=== PATIENT | female | born 1945 | race Caucasian/White ===

== ENCOUNTER → 2016-11-14 | Outpatient (CLI) | payer OTHER ==
--- NOTE | 2016-11-14 11:29 | MR ---
MRI Upper Extremity, Right Shoulder History: Right shoulder pain. Evaluate for rotator cuff tear. ICD 10 code M75.121. Technique: MRI was performed of the right shoulder using a 1.5 [employer] MRI system. Oblique coronal, obl ique sagittal, and axial images were obtained with standard imaging sequences. Findings Acromioclavicular region: Moderate degenerative change is seen at the acromioclavicular joint. Anteri or curve to the acromion. Subacromial/subdeltoid fluid collection. Rotator cuff: There is abnormal signal intensity and attenuation in the distal supraspinatus tendon. There is bursal surface and undersurface fraying and attenuation. There appears to be a 3 mm full thi ckness tear, 7 mm from the distal insertion. Subcortical cyst is seen in the anterior greater tuberos ity, measuring 10 mm. There is edema along the central tendon and muscle of the supraspinatus. There is moderate abnormal signal intensity in the distal anterior fibers of the infraspinatus tendon with minimal attenuation. Teres minor is unremarkable. There is abnormal signal intensity and attenuation of the distal subscapularis tendon at the distal 1 cm. Biceps tendon: The long head of the biceps tendon is seen within the bicipital groove. There is abnor mal signal intensity in the intraarticular portion of the long head of the biceps tendon. Glenohumeral joint: Fraying is seen in the posterosuperior labrum with partial tear near the free edg e in the 11-12 o'clock position. No evidence for an articular cartilage defect of the glenohumeral gee int. No significant glenohumeral joint effusion. General: No evidence for axillary lymphadenopathy. Impression: 1. Severe tendinopathy and partial tear in the distal supraspinatus tendon with a small full thicknes s tear. This appears acute with edema along the central tendon and muscle of the supraspinatus. Moder ate tendinopathy with minimal partial tear distal infraspinatus tendon. Subacromial/subdeltoid bursit is. 2. Mild tendinopathy and partial tear distal subscapularis tendon. 3. Moderate tendinopathy intraarticular long of the biceps tendon. 4. Fraying and partial tear of the posterosuperior labrum. 5. Moderate degenerative change acromioclavicular joint. Anterior curve to the acromion.
== END ==
LOC: FIMAGING 08:31
PROVIDERS: ATTEND Physician Assistant
DX: M75.121 Complete rotator cuff tear or rupture of right shoulder, not specified as traumatic (principal); M75.31 Calcific tendinitis of right shoulder; M75.21 Bicipital tendinitis, right shoulder; M19.011 Primary osteoarthritis, right shoulder

== ENCOUNTER 2017-02-02 09:55 | Emergency (ER) | payer OTHER ==
[2017-02-02 10:10] VITALS: BP 156/87; PULSE 88; RESP 18; TEMP 98; O2SAT 97
--- NOTE | 2017-02-02 11:51 | UCPHY ---
H & P Time Seen by Provider: 02/02/17 09:59 Patient Type: Established HPI/ROS: CHIEF COMPLAINT: Constipation and diarrhea History by patient HISTORY OF PRESENT ILLNESS: 71-year-old woman who is 3 weeks status post left knee replacement presents complaining of intermittent constipation alternating with diarrhea for the past 3-4 days as well as some abdominal cramping and nausea but no vomiting. Patient has a history of irritable bowel syndrome which she says is generally associated with diarrhea and that she was having that even prior to her surgery. Patient has been taking both Dilaudid and OxyContin for her knee pain after the operation however in the past week she has significantly decreased her dosages of these medications. She is able to eat and drink but she feels like things go right through her or alternately that she is constipated. She denies any fever or chills. She says her knee has been doing very well which is why she is tapering off the pain medication. Patient also says she gets epigastric discomfort, heartburn for pain and brackish taste in her mouth, particularly when she lies flat and at night. The symptoms have been going on since at least when she had the surgery and the hospital if not prior to that. Patient states she was given Mylanta in the hospital for these symptoms which helped somewhat she has been taking this at home too with some relief. REVIEW OF SYSTEMS: As in HPI, and all other systems reviewed and are negative Smoking Status: Never smoked Physical Exam: General Appearance: Alert, nontoxic-appearing. Eyes: Pupils equal and round no pallor or injection. ENT, Mouth: Mucous membranes moist. Respiratory: Normal, effort, There are no retractions, lungs are clear to auscultation. Cardiovascular: Regular rate and rhythm. Gastrointestinal: Abdomen is soft and nontender, no masses, bowel sounds normal. Neurological: Awake, alert and oriented x 3, no pronator drift, normal gait, no pronator drift Skin: Warm and dry, no rashes. Musculoskeletal: Neck is supple nontender. Extremities are symmetrical, full range of motion. Psychiatric: Patient has normal affect, there is no agitation. Constitutional: Initial Vital Signs Temperature (C) 36.6 C 02/02/17 10:07 Heart Rate 88 02/02/17 10:07 Respiratory Rate 18 02/02/17 10:07 Blood Pressure 156/87 H 02/02/17 10:07 O2 Sat (%) 97 02/02/17 10:07 O2 Delivery Mode Room Air Allergies/Adverse Reactions: bethanechol chloride [From Urecholine] Allergy (Severe, Verified 07/15/16 16:38) FLUSHED, PALPATATIONS, SOB codeine [Codeine] Allergy (Intermediate, Verified 07/15/16 16:38) NAUSEA, VOMITING Home Medications: Medication Instructions Recorded Cholecalciferol (Vitamin D3) 5,000 unit PO DAILY 05/13/12 [Vitamin D3] Ezetimibe/Simvastatin [Vytorin 1 each PO DAILY 05/13/12 10-20 mg Tablet] Levothyroxine [Synthroid 137 mcg 137 mcg PO DAILY06 05/13/12 (RX)] Multivitamins [Multivitamin (OTC)] 1 each PO DAILY 05/13/12 Sertraline HCl [Zoloft 100mg (RX)] 100 mg PO DAILY 05/13/12 Triamterene/Hctz 37.5/25 2 tab PO DAILY 05/13/12 [Maxzide-25 (RX)] Vitamin B Complex [Vitamin B 1 each PO DAILY 05/13/12 Complex (OTC)] Maxzide-25 (*) 07/15/16 New Ra Med 07/15/16 Omeprazole [Prilosec 20 mg] 20 mg PO DAILY #0 capsule. 02/02/17 Ondansetron Odt [Zofran Odt 4 mg 4 mg PO Q4 #12 tab 02/02/17 (*)] Medical Decision Making ED Course/Re-evaluation: 71-year-old woman status post left knee replacement and history of irritable bowel syndrome presents with both constipation and diarrhea. Patient has a longstanding history of diarrhea earlier related to her irritable bowel syndrome. I suspect the constipation is related to the opioid she has been taking for pain and the fact that she is sick significantly decreased her dose after 3 weeks of regular OxyContin and Dilaudid may be giving her some mild withdrawal symptoms. There is no evidence of any significant systemic toxicity , dehydration or acute abdomen. She is taking oral food and fluids without difficulty. I recommended she get completely off the opioids and we can treat her GI symptoms symptomatically with Zofran and Prilosec for her reflux. Patient is agreeable to this plan. She follow up with her GI doctor. She will get back on her probiotics for her IBS. Departure - Departure Disposition: Home, Routine, Self-Care Clinical Impression: Constipation due to opioid therapy Diarrhea Qualifiers: Diarrhea type: unspecified type Qualified Code(s): R19.7 - Diarrhea, unspecified Clinical Impression: (Ruled Out): Irritable bowel syndrome with both constipation and diarrhea Condition: Good Instructions: Nutrition Tips for Relief of Diarrhea (ED) Additional Instructions: You were seen by Dr. Tasha Doshi today. Return for any worsening or new concerns. Begin taking your probiotics again. You may try Imodium for the diarrhea. You may take Zofran as needed for nausea the and omeprazole for reflux symptoms. Please drink plenty of fluids. Your symptoms may be related to going off the opioid pain medicines. Try alternative treatments for pain. Referrals: MIKE NIETO [Primary Care Provider] - As per Instructions Prescriptions: Omeprazole [Prilosec 20 mg] 20 mg PO DAILY #0 capsule. Ondansetron Odt [Zofran Odt 4 mg (*)] 4 mg PO Q4 #12 tab - PQRS PQRS Measurement: 134: Depression screening and followup, PRIME MD-PHQ2 (12 years and older) Over the last 2 weeks, how often have you been bothered by any of the following problems? 1. Feeling down, depressed, or hopeless? 2. Little interest or pleasure in doing things? Patient answered no to both 1 and 2 . 130: Documentation of medications. Reviewed all patient medications, doses, route and frequency. . 226: Do you smoke? No. 47: 65 and older: Advanced care planning. Patient designates surrogate decision maker as spouse . 51: 18 years old and older with diagnosis of COPD, spirometry performance. Patient has no history of COPD 52: 18 years old and older with COPD and symptoms of COPD or FEV1<60% predicted prescribed a B Agonist
== END 2017-02-02 11:59 | disposition home or self-care (01) ==
LOC: CED 09:55
DX: K59.09 Other constipation (principal); R19.7 Diarrhea, unspecified; Z96.642 Presence of left artificial hip joint; K58.0 Irritable bowel syndrome with diarrhea
CPT/HCPCS: 99214-PO; G0463-PO

== ENCOUNTER → 2017-04-07 | Outpatient (CLI) | payer OTHER | LOC: BHCLAF 14:30 | PROVIDERS: ATTEND Internal Medicine Cardiovascular Disease | DX: R07.89 Other chest pain (principal); I10 Essential (primary) hypertension; E78.5 Hyperlipidemia, unspecified | CPT/HCPCS: 93005-PO ==

== ENCOUNTER → 2017-04-11 | Outpatient (CLI) | payer OTHER | LOC: BHCLAF 14:00 | PROVIDERS: ATTEND Internal Medicine | DX: R07.9 Chest pain, unspecified (principal); I10 Essential (primary) hypertension; R06.00 Dyspnea, unspecified | CPT/HCPCS: 93306-PO ==

== ENCOUNTER → 2017-04-13 | Outpatient (CLI) | payer OTHER | LOC: BHFA 09:30 | PROVIDERS: ATTEND Internal Medicine Cardiovascular Disease | DX: R07.9 Chest pain, unspecified (principal) | CPT/HCPCS: 78452; 93017; A9500; J2785 ==

== ENCOUNTER 2017-07-12 12:14 | Day surgery (SDC) | payer OTHER ==
--- NOTE | 2017-07-12 08:43 | GHP ---
[f rep st] PREOP HISTORY AND PHYSICAL DATE OF ADMISSION: 07/12/2017 DATE OF PLANNED PROCEDURE: 07/12/2017. PREOPERATIVE DIAGNOSIS: Postoperative wound infection, right knee. HISTORY OF PRESENT ILLNESS: The patient is a 71-year-old female, who underwent a total knee arthropl asty in December 2016. She had problems with dislocation postoperatively. We took her back to the oper ating room in April, found a torn quadriceps tendon, torn MCL, repaired the MCL, as well as the quad, and placed a larger poly. Wound was initially healing uneventfully, and then she developed some woun d break down over the mid part of the wound. Oral antibiotics were tried and failed, and now decisio n has been made to proceed to the operating room for formal I and D, it is not felt that the infectio n extends down into the joint. PRIOR MEDICAL HISTORY: Hypothyroidism, rheumatoid arthritis, kidney disease, high cholesterol, gout, and arthritis. PRIOR SURGICAL HISTORY: Partial knee arthroplasty on the left, total knee arthroplasty on the right, hysterectomy, carpal tunnel release, multiple foot surgeries. MEDICATIONS: Currently on Keflex and Bactrim, hydrocodone, omeprazole, rosuvastatin, propranolol, se rtraline, Synthroid 137 mcg, triamterene hydrochlorothiazide, and VESIcare. ALLERGIES: Codeine causes vomiting. Urecholine causes an irregular heart rate and tachycardia. SOCIAL HISTORY: She works part-time as a [employer] professor. Does not smoke. Does not drink alcohol. REVIEW OF SYSTEMS: No shortness of breath. No chest pain. No fevers. No chills. Otherwise, revie w of systems is unremarkable. PHYSICAL EXAM: VITAL SIGNS: A 71-year-old female, she is 5 feet 3 inches tall, weighs 205 pounds. Blood pressure is 171/88, heart rate is 82, respiratory rate is 16 on room air. GENERAL: Alert and oriented x3. HEENT: Normocephalic, atraumatic. Extraocular muscles are intact. NECK: Supple. Th ere is no lymphadenopathy. No JVD. CHEST: Clear to auscultation. CARDIOVASCULAR: Regular rate an d rhythm. ABDOMEN: Soft, nontender, nondistended. EXTREMITIES: Focusing on the knee, on the right side, shows some redness and warmth. Not much effusion to the joint. She has near full extension. Flexion to about 120 degrees. Gets a little posterior knee pain. There is 1 small area of breakdow n on the front of the knee that looks like started as a stitch abscess that has not healed, draining some purulent material. Calf is otherwise soft. 2+ dorsalis pedis, posterior tibial pulses. 5/5 an kle dorsiflexion, plantar flexion. IMAGING: X-rays reveal satisfactory alignment of the prosthesis. ASSESSMENT: Postoperative wound infection. Failed oral antibiotics. PLAN: Long discussion with this patient. Given the fact that she is status post revision total knee arthroplasty, we need to treat this aggressively. She has not improved with oral antibiotics. I am going to proceed with a formal I and D in the operating room. I do not anticipate this goes into th e joint. It looks pretty superficial, but I want to clean it out. We will give her a dose of vancom ycin as her preoperative antibiotic, and then she will continue with a combination of Keflex and Bact rim postoperatively. She will be n.p.o. after midnight Tuesday night. Plan on surgery Tuesday aftern oon. We can do this as an outpatient. /[id number]/MODL
[2017-07-12] MEDS ORDERED: POLYMYXIN B SULFATE 500,000 UNIT/10 ML SYR IRR ONE (12:20)
[2017-07-12] MEDS ORDERED: VANCOMYCIN PHARMACY TO DOSE MISC ONE (12:45)
[2017-07-12] MEDS ORDERED: LR 1,000 ML IV ONE (12:47)
[2017-07-12] MEDS ORDERED: LIDOCAINE 1% 2 ML INJ ID PRN (12:47)
[2017-07-12] MEDS ORDERED: VANCOMYCIN 1.25 GM in D5W 250 ML IV ONE (13:00)
--- NOTE | 2017-07-12 13:03 | PDANEPAE ---
ANE History of Present Illness S/P TKA with wound dehiscence ANE Past Medical History - Cardiovascular History Hx Hypertension: Yes Hx Arrhythmias: No Hx Chest Pain: No Hx Coronary Artery / Peripheral Vascular Disease: No Hx CHF / Valvular Disease: No Hx Palpitations: No - Pulmonary History Hx COPD: No Hx Asthma/Reactive Airway Disease: Yes Hx Recent Upper Respiratory Infection: No Hx Oxygen in Use at Home: No Hx Sleep Apnea: No Sleep Apnea Screening Result - Last Documented: Positive Pulmonary History Comment: ASTHMA TRIGGERS ENVIRONMENTAL. YAS TRIGGERS. PNEUMONIA 2010 - Neurologic History Hx Cerebrovascular Accident: No Hx Seizures: No Hx Dementia: No - Endocrine History Hx Diabetes: No Endocrine History Comment: TOTAL THYROIDECTOMY - Renal History Hx Renal Disorders: Yes Renal History Comment: CKD STAGE 2-3. UA INCONT - Liver History Hx Hepatic Disorders: No - Neurological & Psychiatric Hx Hx Neurological and Psychiatric Disorders: Yes Neurological / Psychiatric History Comment: DEPRESSION - Cancer History Hx Cancer: Yes - Congenital Disorder History Hx Congenital Disorders: No - GI History Hx Gastrointestinal Disorders: Yes Gastrointestinal History Comment: HIATAL HERNIA. REFLUX. ESOPHAGITIS - Other Health History Other Health History: RHEUMATOID ARTHRITIS. ANEMIA 12/2016 POST SURG - Chronic Pain History Chronic Pain: Yes (RT KNEE) - Surgical History Prior Surgeries: RT TOTAL KNEE REVISION 04/2017 AT [facility]. RT TOTAL KNEE 12/2016 AT [facility]. LT PARTIAL TOTAL KNEE. HYSTERECTOMY. ECTOPIC . LASIK. TOTAL THYROIDECTOMY 2009. LUMBAR FUSION. LAMINECTOMY ANE Review of Systems Review of Systems: - Exercise capacity METS (RN): 4 METS ANE Patient History - Allergies Allergies/Adverse Reactions: bethanechol chloride [From Urecholine] Allergy (Severe, Verified 07/15/16 16:38) FLUSHED, PALPATATIONS, SOB codeine [Codeine] Allergy (Intermediate, Verified 07/15/16 16:38) NAUSEA, VOMITING - Home Medications Home medications: home medication list seen and reviewed Home Medications: Cholecalciferol (Vitamin D3) [Vitamin D3] 5,000 unit PO DAILY 05/13/12 [Last Taken 07/12/17] Ezetimibe/Simvastatin [Vytorin 10-20 mg Tablet] 1 each PO DAILY 05/13/12 [Last Taken 07/12/17] Levothyroxine [Synthroid 137 mcg (*)] 137 mcg PO DAILY06 05/13/12 [Last Taken ] Multivitamins [Multivitamin (*)] 1 each PO DAILY 05/13/12 [Last Taken 07/12/17] Sertraline HCl [Zoloft 100mg (*)] 100 mg PO DAILY 05/13/12 [Last Taken 07/12/17] Triamterene/Hctz 37.5/25 [Maxzide-25 (*)] 2 tab PO DAILY 05/13/12 [Last Taken ] Vitamin B Complex [Vitamin B Complex (OTC)] 1 each PO DAILY 05/13/12 [Last Taken 07/12/17] Herbal Drugs DAILY 07/11/17 [Last Taken 07/12/17] Omeprazole [Prilosec 20 mg] 20 mg PO BID 07/11/17 [Last Taken 07/12/17] - Smoking Hx Smoking Status: Never smoked ANE Labs/Vital Signs - Labs Result Diagrams: 07/12/17 12:58 - Vital Signs Height: 160.02 cm Weight: 91.626 kg ANE Physical Exam - Airway Neck exam: FROM Mallampati Score: Class 1 Mouth exam: normal dental/mouth exam - Pulmonary Pulmonary: no respiratory distress - Cardiovascular Cardiovascular: regular rate and rhythym - ASA Status ASA Status: II ANE Anesthesia Plan Anesthesia Plan: MAC
--- NOTE | 2017-07-12 13:11 | PDHPUP ---
History & Physical Update H&P update statement: This history and physical update is based on an assessment of the patient which was completed after admission or registration (within 24 hours), but prior to the surgery/procedure. H&P update: H&P reviewed & patient examined, no change in patient's condition since H&P completed
[2017-07-12] MEDS ORDERED: MIDAZOLAM 2 MG/2 ML VIAL IVP ONE (13:14)
[2017-07-12] MEDS ORDERED: MIDAZOLAM 2 MG/2 ML VIAL ONE (13:21)
[2017-07-12] MEDS ORDERED: PROPOFOL 200 MG/20 ML VIAL ONE ×3 (13:21→13:45)
[2017-07-12 13:30] VITALS: PULSE 72
[2017-07-12 13:32] LABS: ANION GAP 12 mEq/L (8-16); CALCIUM 9.6 mg/dL (8.5-10.4); CARBON DIOXIDE 21 mEq/l (22-31); CHLORIDE 101 mEq/L (97-110); GLOMERULAR FILTRATION RATE 25; GLUCOSE 98 mg/dL (70-100); POTASSIUM 3.5 mEq/L (3.5-5.2); SODIUM 134 mEq/L (134-144)
[2017-07-12] MEDS ORDERED: fentaNYL 100 MCG/2 ML INJ ONE (13:39)
[2017-07-12] MEDS ORDERED: LIDO/EPI 1% **for epidural** 30 ML SDV ONE (13:51)
[2017-07-12] MEDS ORDERED: BACITRACIN 50,000 UNITS/10 ML SYR IRR ONE (14:06)
[2017-07-12] MEDS: BUPIVACAINE/EPI 0.5% 30 ML SDV ONE ×2 (14:07→14:13)
[2017-07-12] MEDS ORDERED: fentaNYL 100 MCG/2 ML INJ IVP PRN (14:25)
[2017-07-12] MEDS ORDERED: NALOXONE HCL 0.4 MG/ML INJ IVP PRN (14:25)
[2017-07-12] MEDS ORDERED: ONDANSETRON 4 MG/2 ML VIAL IVP PRN (14:25)
--- NOTE | 2017-07-12 14:26 | POSTANESTH ---
Post Anesthetic Evaluation Cardiovascular Status: Normal, Stable Respiratory Status: Normal, Stable Level of Consciousness/Mental Status: Can Participate in Eval Pain Control: Adequate, Prn Tx Ordered Nausea/Vomiting Control: Adequate, Prn Tx Ordered
--- NOTE | 2017-07-12 14:51 | POSTOPPROG ---
Post Op Note Date of Operation: 07/12/17 Surgeon: Jimmy Chow Anesthesiologist: Rosie Anesthesia: Other (Specify) (MAC) Pre-op Diagnosis: Post op infection Post-op Diagnosis: same Procedure: I&D rt knee skin/subQ Inf/Abcess present in the surg proc area at time of surgery?: Yes Depth: Superfical (Skin SQ) EBL: Minimal Complications: none
[2017-07-12 15:22] VITALS: BP 136/80; RESP 15
[2017-07-12 15:24] VITALS: TEMP 97.5
[2017-07-12 15:32] VITALS: O2SAT 95
--- NOTE | 2017-07-14 11:34 | GOP ---
[f rep st] OPERATIVE REPORT DATE OF OPERATION: 07/12/2017 SURGEON: Jimmy Chow MD ANESTHESIA: General. ANESTHESIOLOGIST: Dorian Velez MD PREOPERATIVE DIAGNOSIS: Right knee wound postoperative infection. POSTOPERATIVE DIAGNOSIS: Right knee wound postoperative infection. PROCEDURE PERFORMED: I and D right knee superficial soft tissue, skin and subcutaneous layer. FINDINGS: ESTIMATED BLOOD LOSS: Minimal. INDICATIONS: The patient is a 71-year-old female, who initially underwent a total knee arthroplasty in November. She sustained quadriceps as well as MCL tear, underwent repair of those and increase in poly size in April. She has developed an area in the incision that will not heal and is draining some serous fluid, failed oral antibiotics. Decision was made to proceed with a formal I and D in the oper ating room. DESCRIPTION OF PROCEDURE: After appropriate informed consent was obtained, patient was taken to the operating room and placed supine on the operating table. Time-out was performed. Patient was identifi ed and correct site was identified. She received 1 g of vancomycin preoperatively. Following inductio n of general endotracheal tube anesthesia, the right lower extremity was prepped and draped in usual sterile fashion. All bony prominences were well padded. We inflated the tourniquet. After we elevated the leg, total tourniquet time was 26 minutes at 250 mmHg. I ellipsed the mid part of the incision, where there was skin breakdown. Explored the wound. It did n ot go into the knee joint itself. There was some seroma formation on the medial side of the knee. I e vacuated this, irrigated it with 3 L of normal saline pulsatile lavage with polymyxin bacitracin and 3 L of normal saline plain. Deep layers closed with 2-0 Vicryl. Skin was closed with interrupted nylo n stitches. I instilled 20 mL 0.5% Marcaine with epinephrine for postoperative anesthesia. Sterile dr essing was applied. Patient was awakened from anesthesia and taken to recovery room in satisfactory condition. There were no immediate intraoperative complications. COMPLICATIONS: None. DRAINS: None. /[id number]/MODL
== END 2017-07-12 15:50 | disposition home or self-care (01) ==
LOC: FSGY 12:14
PROVIDERS: ATTEND Orthopaedic Surgery
PROC: 0JBN0ZZ Excision of Right Lower Leg Subcutaneous Tissue and Fascia, Open Approach (ICD-10-PCS; principal; 2017-07-12 13:30)
DX: T81.4XXD Infection following a procedure, subsequent encounter (principal); L76.34 Postprocedural seroma of skin and subcutaneous tissue following other procedure; E03.9 Hypothyroidism, unspecified; M06.9 Rheumatoid arthritis, unspecified; N18.9 Chronic kidney disease, unspecified; E78.5 Hyperlipidemia, unspecified; M10.9 Gout, unspecified; Z96.651 Presence of right artificial knee joint; Z98.1 Arthrodesis status; Y65.8 Other specified misadventures during surgical and medical care
CPT/HCPCS: J2250; J2704; J3010; J3370

== ENCOUNTER → 2017-12-21 | Day surgery (SDC) | payer OTHER ==
[~2017-12-21] MED LIST: DEXAMETHASONE 10 MG/ML VIAL MISC ONE; DEXAMETHASONE 4 MG/ML VIAL INL ONE; IOPAMIDOL (ISOVUE-M 300) 15 ML VIAL ONE; LIDOCAINE 1% 300 MG/30 ML SDV ONE
== END | disposition home or self-care (01) ==
LOC: FIMAGING 12:35
PROVIDERS: ATTEND Radiology Diagnostic Radiology
PROC: B01B1ZZ Fluoroscopy of Spinal Cord using Low Osmolar Contrast (ICD-10-PCS; principal; 2017-12-21)
PROC: 3E0S33Z Introduction of Anti-inflammatory into Epidural Space, Percutaneous Approach (ICD-10-PCS; principal; 2017-12-21)
PROC: 3E0S3BZ Introduction of Anesthetic Agent into Epidural Space, Percutaneous Approach (ICD-10-PCS; principal; 2017-12-21)
DX: M51.16 Intervertebral disc disorders with radiculopathy, lumbar region (principal)
CPT/HCPCS: J1100; Q9967

== ENCOUNTER → 2018-01-13 | Day surgery (SDC) | payer OTHER ==
[~2018-01-13] MED LIST changes: +BUPIVACAINE 0.25% 30 ML SDV ONE; +DEPO METHYLPREDNISOLONE 40 MG/ML SDV ONE; -DEXAMETHASONE 10 MG/ML VIAL MISC ONE; -DEXAMETHASONE 4 MG/ML VIAL INL ONE; -IOPAMIDOL (ISOVUE-M 300) 15 ML VIAL ONE; -LIDOCAINE 1% 300 MG/30 ML SDV ONE; +methylPREDNISolone SOD SUCC 125 MG/2 ML VIAL ONE
== END | disposition home or self-care (01) ==
LOC: FIMAGING 09:14
PROVIDERS: ATTEND Radiology Diagnostic Radiology
PROC: 3E0S33Z Introduction of Anti-inflammatory into Epidural Space, Percutaneous Approach (ICD-10-PCS; principal; 2018-01-13)
PROC: 3E0S3BZ Introduction of Anesthetic Agent into Epidural Space, Percutaneous Approach (ICD-10-PCS; principal; 2018-01-13)
PROC: BR2D1ZZ Computerized Tomography (CT Scan) of Sacroiliac Joints using Low Osmolar Contrast (ICD-10-PCS; principal; 2018-01-13)
DX: M54.5 Low back pain (principal); M46.1 Sacroiliitis, not elsewhere classified
CPT/HCPCS: J1030; J2930

== ENCOUNTER 2018-01-15 14:56 | Emergency (ER) | payer OTHER ==
[2018-01-15 15:06] VITALS: RESP 18
--- NOTE | 2018-01-15 15:58 | EDPHY ---
H & P Time Seen by Provider: 01/15/18 15:09 HPI/ROS: CHIEF COMPLAINT: Right hip pain HISTORY OF PRESENT ILLNESS: 72-year-old female presents with sudden onset of right hip pain. She was walking in the kitchen just prior to arrival, when she felt a pop in her right hip and then her hip buckled. She did not fall to the ground or otherwise hurt herself. Since then she is able to bear weight and to walk, but has pain with ambulation. She has a history of recent SI and lumbar injections for ongoing pain in the lower back. She also has a history of multiple surgeries of the right knee. REVIEW OF SYSTEMS: Constitutional: No fever, no chills Eyes: No visual changes ENT: No sore throat Respiratory: No cough, no shortness of breath Cardiac: No chest pain Gastrointestinal: No nausea, no vomiting, no abdominal pain Genitourinary: no dysuria Skin: No rash Neurological: No headache, no numbness, no weakness Psychiatric: No depression Past Medical/Surgical History: Hypertension Chronic renal failure Social History: Orthopedic surgeon: Dr. Chow Smoking Status: Never smoked Physical Exam: General Appearance: Alert, pleasant Eyes: Pupils equal and round, no conjunctival pallor or injection ENT, Mouth: Mucous membranes moist Neck: Normal inspection Respiratory: Lungs are clear to auscultation Cardiovascular: Regular rate and rhythm Gastrointestinal: Abdomen is soft and nontender Neurological: A&O, nonfocal, normal gait Skin: Warm and dry, no rash Back: Tender over the right SI joint area, no midline tenderness Extremities: Right hip-normal inspection, no tenderness, range of motion without pain Psychiatric: Mood and affect normal Constitutional: Initial Vital Signs Temperature (C) 36.7 C 01/15/18 15:02 Heart Rate 81 01/15/18 15:02 Respiratory Rate 18 01/15/18 15:02 Blood Pressure 164/81 H 01/15/18 15:02 O2 Sat (%) 92 01/15/18 15:02 O2 Delivery Mode Room Air Allergies/Adverse Reactions: bethanechol chloride [From Urecholine] Allergy (Severe, Verified 07/15/16 16:38) FLUSHED, PALPATATIONS, SOB codeine [Codeine] Allergy (Intermediate, Verified 07/15/16 16:38) NAUSEA, VOMITING NSAIDS (Non-Steroidal Anti-Inflamma Allergy (Verified 12/21/17 13:32) Other-Enter Comments Home Medications: Medication Instructions Recorded Cholecalciferol (Vitamin D3) 5,000 unit PO DAILY 05/13/12 [Vitamin D3] Levothyroxine [Synthroid 137 mcg 137 mcg PO EVERY OTHER DAY 05/13/12 (*)] Sertraline HCl [Zoloft 100mg (*)] 100 mg PO DAILY 05/13/12 Vitamin B Complex [Vitamin B 1 each PO DAILY 05/13/12 Complex (OTC)] Leflunomide 20 mg PO DAILY 12/19/17 Levothyroxine [Synthroid 125 mcg 1 tab PO EVERY OTHER DAY 12/19/17 (*)] Propranolol HCl 20 mg PO DAILY MDD 40 12/19/17 Rosuvastatin Calcium [Crestor 10mg 10 mg PO DAILY 12/19/17 (RX)] Tramadol-Acetaminophn 37.5-325 1 tab PO TID PRN 12/19/17 Triamterene/Hctz 75/50 1 tab PO DAILY 12/19/17 Citrucel 1 tab PO DAILY 01/10/18 Coq-10 1 cap PO DAILY 01/10/18 Herbals/Supplements -Info Only 01/10/18 Vitamin A 1,000 iunits PO DAILY 01/10/18 Medical Decision Making - Diagnostics Imaging Results: Imaging Impressions Hip X-Ray 01/15/18 15:55 Impression: 1. Mild osteoarthritis in the hips with no acute osseous findings. 2. Degenerative change in the lumbar spine. ED Course/Re-evaluation: X-rays of the right hip, pelvis and lumbar spine are unremarkable, and independently reviewed by me. This patient presents with sudden onset right-sided back pain after hearing a pop in her back. She has normal range of motion of her right hip. The pain appears localized over the right SI joint. X-rays are negative. MRI discussed with the patient, she prefers to follow up with her physician, Dr. Chow in the office. She will continue taking her usual pain medication. Departure - Departure Disposition: Home, Routine, Self-Care Clinical Impression: Acute low back pain Qualifiers: Back pain laterality: right Sciatica presence: without sciatica Qualified Code( s): M54.5 - Low back pain Condition: Good Instructions: Low Back Strain (ED) Referrals: MIKE NIETO [Primary Care Provider] - As per Instructions Jimmy Chow MD [Medical Doctor] - As per Instructions (Call Dr. Chow to make an appointment.)
[2018-01-15 16:42] VITALS: BP 159/93; PULSE 78; TEMP 98.2; O2SAT 93
== END 2018-01-15 16:45 | disposition home or self-care (01) ==
DX: M54.5 Low back pain (principal); I12.9 Hypertensive chronic kidney disease with stage 1 through stage 4 chronic kidney disease, or unspecified chronic kidney disease; N18.9 Chronic kidney disease, unspecified

== ENCOUNTER 2018-01-21 09:36 | Emergency (ER) | payer OTHER ==
[2018-01-21] MEDS ORDERED: NS 1,000 ML IV ONE (09:48)
[2018-01-21] MEDS ORDERED: amLODIPine BESYLATE 5 MG TAB PO ONE ×2 (09:48→11:40)
--- NOTE | 2018-01-21 10:00 | EDPHY ---
HPI/HX/ROS/PE/MDM Narrative: CHIEF COMPLAINT: High blood pressure HPI: The patient is a 72-year-old female with a history of chronic low back pain as well as hypertension. She was seen in the emergency department approximately 1 week ago for back pain and in her orthopedic surgeon's office yesterday for the back pain. No new medications have been added. No procedure was done. She presents to the emergency department this morning because she checked her blood pressure and found her systolic to be over 200. She complains of mild headache and some"foggy thinking". She denies chest pain, shortness of breath, syncope. She may have missed 1 dose of high blood pressure medication yesterday but denies other change in medications. REVIEW OF SYSTEMS: Aside from elements discussed in the HPI, a comprehensive 10-point review of systems was reviewed and is negative. PMH: Includes hypertension, chronic low back pain, hamstring tear SOCIAL HISTORY: Denies alcohol or drug abuse. PHYSICAL EXAM: General:Patient is alert, in no acute distress. ENT:Eyes are normal to inspection. ENT inspection normal. Neck: Normal inspection. Full range of motion. Respiratory:No respiratory distress. Breath sounds normal bilaterally. Cardiovascular: Regular rate and rhythm. Strong peripheral pulses. Normal cap refill. Abdomen:The abdomen is nontender to palpation. There are no peritoneal signs. There are normal bowel sounds. Back: Normal to inspection. No tenderness to palpation. Skin: Normal color. No rash. Warm and dry. Extremities: Normal appearance. Full range of motion. Neuro: Oriented x3. Normal motor function. Normal sensory function. ED Course: Patient treated with IV fluids and 2.5 mg of oral amlodipine. On re-evaluation at 11:30am, patient states symptoms are resolved and she is hungry for a cheeseburger. BP trending down. Patient given second dose of 2.5mg amlodipine. I am hesitant to provide additional antihypertensives as I do not want to drop her BP too quickly or too severely. I discussed plan in detail with patient and daughter and they are enthusiastic. On re-eval at 1pm, patient asymptomatic, smiling and would like to go home. Her repeat BP remains elevated but slightly improved. I explained to the patient that at this point we should probably admit patient to the hospital for additional monitoring and BP control, but she declines. We agreed on a plan to provide the patient with a short Rx for oral amlodipine which she can use as a rescue medication should her BP trend up again. She understands that she will need to return to the ED immediately for any symptoms or if her BP remains elevated. We discussed and she understands risks of refusal including CVA, ACS or . MDM: This patient presents with elevated blood pressure. She does complain of mild headache and foggy thinking but thankfully CT head is negative. We performed an extensive workup including blood work and there is no sign of acute renal failure or acute coronary syndrome. She does appear to have a mild UTI. I suspect that her increasing hypertension is likely multifactorial including urinary tract infection, pain from sciatica and missing a dose of her medication. We will treat her UTI and I have strongly recommended follow up with her primary care physician on Tuesday for further management of her blood pressure. I see no signs of hypertensive emergency or need for admission to the hospital. - Data Points Imaging Results: Imaging Impressions Head CT 01/21/18 09:58 Impression: 1. Normal CT brain without contrast. 2. No acute hemorrhage. Findings and recommendations discussed with Emergency Department physician, Alex Anderson MD at 10:43 hour, 01/21/2018. Final report concurs with initial preliminary interpretation. Imaging: Discussed imaging studies w/ receiving worker Radiologist Laboratory Results: Laboratory Results 01/21/18 10:00 01/21/18 10:00 01/21/18 01/21/18 01/21/18 10:03 10:00 10:00 WBC 13.14 10^3/uL H 10^3/uL (3.80-9.50) RBC 4.83 10^6/uL 10^6/uL (4.18-5.33) Hgb 13.7 g/dL g/dL (12.6-16.3) Hct 42.6 % % (38.0-47.0) MCV 88.2 fL fL (81.5-99.8) MCH 28.4 pg pg (27.9-34.1) MCHC 32.2 g/dL L g/dL (32.4-36.7) RDW 16.2 % H % (11.5-15.2) Plt Count 440 10^3/uL H 10^3/uL (150-400) MPV 10.4 fL fL (8.7-11.7) Neut % (Auto) 79.6 % H % (39.3-74.2) Lymph % (Auto) 9.7 % L % (15.0-45.0) [place] % (Auto) 8.0 % % (4.5-13.0) Eos % (Auto) 1.2 % % (0.6-7.6) Baso % (Auto) 0.7 % % (0.3-1.7) Nucleat RBC Rel Count 0.0 % % (0.0-0.2) Absolute Neuts (auto) 10.47 10^3/uL H 10^3/uL (1.70-6.50) Absolute Lymphs (auto) 1.27 10^3/uL 10^3/uL (1.00-3.00) Absolute Monos (auto) 1.05 10^3/uL H 10^3/uL (0.30-0.80) Absolute Eos (auto) 0.16 10^3/uL 10^3/uL (0.03-0.40) Absolute Basos (auto) 0.09 10^3/uL 10^3/uL (0.02-0.10) Absolute Nucleated RBC 0.00 10^3/uL 10^3/uL (0-0.01) Immature Gran % 0.8 % % (0.0-1.1) Immature Gran # 0.10 10^3/uL 10^3/uL (0.00-0.10) Sodium 138 mEq/L mEq/L (135-145) Potassium 3.9 mEq/L mEq/L (3.5-5.2) Chloride 102 mEq/L mEq/L (97-110) Carbon Dioxide 29 mEq/l mEq/l (22-31) Anion Gap 7 mEq/L L mEq/L (8-16) BUN 38 mg/dL H mg/dL (7-23) Creatinine 1.4 mg/dL H mg/dL (0.6-1.0) Estimated GFR 37 Glucose 93 mg/dL mg/dL (70-100) Calcium 9.5 mg/dL mg/dL (8.5-10.4) Troponin I < 0.012 ng/mL ng/mL (0.000-0.034) Urine Color YELLOW Urine Appearance HAZY Urine pH 6.0 (5.0-7.5) Ur Specific [place] 1.025 (1.002-1.030) Urine Protein 1+ H (NEGATIVE) Urine Ketones NEGATIVE (NEGATIVE) Urine Blood NEGATIVE (NEGATIVE) Urine Nitrate POSITIVE H (NEGATIVE) Urine Bilirubin NEGATIVE (NEGATIVE) Urine Urobilinogen 0.2 EU EU (0.2-1.0) Ur Leukocyte Esterase TRACE H (NEGATIVE) Urine RBC 1-3 /hpf /hpf (0-3) Urine WBC 15-25 /hpf H /hpf (0-3) Ur Epithelial Cells 1+ /lpf /lpf (NONE-1+) Urine Bacteria 3+ /hpf H /hpf (NONE SEEN) Urine Glucose NEGATIVE (NEGATIVE) Medications Given: Discontinued Medications Amlodipine Besylate (Norvasc) 2.5 mg PO EDNOW ONE Stop: 01/21/18 09:49 Last Admin: 01/21/18 09:53 Dose: 2.5 mg Amlodipine Besylate (Norvasc) 2.5 mg PO EDNOW ONE Stop: 01/21/18 11:41 Last Admin: 01/21/18 11:46 Dose: 2.5 mg Sodium Chloride (Ns) 1,000 mls @ 0 mls/hr IV EDNOW ONE; Wide Open PRN Reason: Protocol Stop: 01/21/18 09:49 Last Admin: 01/21/18 09:55 Dose: 1,000 mls Oxycodone/Acetaminophen (Percocet 5/325) 1 tab PO EDNOW ONE Stop: 01/21/18 10:48 Last Admin: 01/21/18 10:49 Dose: 1 tab General Time Seen by Provider: 01/21/18 09:39 Initial Vital Signs: Initial Vital Signs Temperature (C) 36.4 C 01/21/18 09:41 Heart Rate 64 01/21/18 09:41 Respiratory Rate 16 01/21/18 09:41 Blood Pressure 192/110 H 01/21/18 09:41 O2 Sat (%) 94 01/21/18 09:41 O2 Delivery Mode Room Air Allergies/Adverse Reactions: bethanechol chloride [From Urecholine] Allergy (Verified 01/21/18 09:46) Pt reports FLUSHED, PALPATATIONS, SOB codeine [Codeine] Allergy (Verified 01/21/18 09:46) Pt reports NAUSEA, VOMITING NSAIDS (Non-Steroidal Anti-Inflamma Allergy (Verified 01/21/18 09:46) Pt reports contradindication with kidney dx Home Medications: Medication Instructions Recorded Cholecalciferol (Vitamin D3) 05/13/12 [Vitamin D3] Sertraline HCl [Zoloft 100mg (*)] 05/13/12 Vitamin B Complex [Vitamin B 05/13/12 Complex (OTC)] Leflunomide 12/19/17 Levothyroxine [Synthroid 125 mcg 12/19/17 (*)] Propranolol HCl 12/19/17 Rosuvastatin Calcium [Crestor 10mg 12/19/17 (RX)] Triamterene/Hctz 75/50 12/19/17 Citrucel 01/10/18 Coq-10 01/10/18 Vitamin A 01/10/18 Nitrofurantoin Monohyd/M-Cryst 100 mg PO BID #20 cap 01/21/18 [Nitrofurantoin [place]-Macrocrystal] amLODIPine BESYLATE [Norvasc 5 mg 5 mg PO DAILY #5 tab 01/21/18 (*)] oxyCODONE/APAP 5/325 [Percocet 5 - 10 mg PO Q4-6PRN PRN #10 tab 01/21/18 5/325] Departure - Departure Disposition: Home, Routine, Self-Care Clinical Impression: Hypertensive urgency, UTI (urinary tract infection) Condition: Good Instructions: Hypertension (ED) Additional Instructions: Follow-up with your doctor on Tuesday without fail to address your blood pressure management. Return to the ED for fever, vomiting, headache, confusion , weakness or other concerns. Use Norvasc(amlodipine) only if your blood pressure remains very high despite taking your normal medication. Referrals: MIKE NIETO [Primary Care Provider] - As per Instructions Prescriptions: amLODIPine BESYLATE [Norvasc 5 mg (*)] 5 mg PO DAILY #5 tab Nitrofurantoin Monohyd/M-Cryst [Nitrofurantoin [place]-Macrocrystal] 100 mg PO BID #20 cap oxyCODONE/APAP 5/325 [Percocet 5/325] 5 - 10 mg PO Q4-6PRN PRN #10 tab PRN Reason: For Pain
[2018-01-21 10:03] LABS: PLATELET COUNT 440 10^3/uL (150-400)
[2018-01-21] MEDS ORDERED: OXYCODONE/APAP 5/325 TAB PO ONE (10:47)
[2018-01-21 13:11] VITALS: BP 174/111
== END 2018-01-21 13:09 | disposition home or self-care (01) ==
LOC: CED 09:36
DX: I10 Essential (primary) hypertension (principal); N39.0 Urinary tract infection, site not specified; I16.0 Hypertensive urgency; B96.89 Other specified bacterial agents as the cause of diseases classified elsewhere; E86.9 Volume depletion, unspecified
CPT/HCPCS: 70450-PO; 80048-PO; 81003-PO; 81015-PO; 84484-PO; 85025-PO

== ENCOUNTER → 2018-01-30 | Outpatient (CLI) | payer OTHER ==
[~2018-01-30] MED LIST changes: -DEPO METHYLPREDNISOLONE 40 MG/ML SDV ONE; +LIDOCAINE 1% 300 MG/30 ML SDV ONE; -methylPREDNISolone SOD SUCC 125 MG/2 ML VIAL ONE
== END ==
LOC: FIMAGING 08:30
PROVIDERS: ATTEND Orthopaedic Surgery
PROC: 3E0U3GC Introduction of Other Therapeutic Substance into Joints, Percutaneous Approach (ICD-10-PCS; principal; 2018-01-30)
DX: M25.551 Pain in right hip (principal)

== ENCOUNTER → 2018-02-03 | Outpatient (CLI) | payer OTHER | LOC: FIMAGING 14:18 | PROVIDERS: ATTEND Internal Medicine | DX: I10 Essential (primary) hypertension (principal); N28.9 Disorder of kidney and ureter, unspecified ==

== ENCOUNTER → 2018-03-06 | Outpatient (CLI) | payer OTHER | LOC: FIMAGING 10:57 | PROVIDERS: ATTEND Radiology Diagnostic Radiology | PROC: 3E023GC Introduction of Other Therapeutic Substance into Muscle, Percutaneous Approach (ICD-10-PCS; principal; 2018-03-06) | DX: M79.651 Pain in right thigh (principal) ==

== ENCOUNTER → 2018-07-14 | Outpatient (CLI) | payer OTHER | LOC: FIMAGING 12:07 | PROVIDERS: ATTEND Orthopaedic Surgery | DX: S46.012A Strain of muscle(s) and tendon(s) of the rotator cuff of left shoulder, initial encounter (principal) ==

== ENCOUNTER 2018-11-03 13:09 | Day surgery (SDC) | payer OTHER | END 2018-11-03 15:45 | disposition home or self-care (01) | LOC: FLAB 13:09 ==

== ENCOUNTER → 2019-02-02 | Outpatient (CLI) | payer OTHER | LOC: FIMAGING 12:35 | PROVIDERS: ATTEND Radiology Diagnostic Radiology | PROC: 3E023GC Introduction of Other Therapeutic Substance into Muscle, Percutaneous Approach (ICD-10-PCS; principal; 2019-02-02) | DX: S76.312A Strain of muscle, fascia and tendon of the posterior muscle group at thigh level, left thigh, initial encounter (principal) ==

== ENCOUNTER 2019-03-12 14:41 | Emergency (ER) | payer OTHER ==
--- NOTE | 2019-03-12 15:12 | EDPHY ---
H & P Stated Complaint: cough,wheezing,dyspnea,fatigue for 2 weeks Time Seen by Provider: 03/12/19 14:57 HPI/ROS: HPI The patient presents with cough, rhinorrhea, mild sore throat, present for the last 2 weeks. Symptoms have been persistent. About 1 week ago she took azithromycin with no improvement in her symptoms. About 4 days ago she saw her primary care physician who started her on albuterol, Flovent, cough syrup. Given that her symptoms did not improve with this, she was instructed to be evaluated for a chest x-ray which she has not had during her course of illness. She says during the day she feels better though at night has a mildly productive cough with clear phlegm associated with significant rhinorrhea and mild sore throat. She has checked her temperature and has not had a fever. She was traveling in [place] just prior to her symptoms beginning. She is not sure about any sick contacts. She denies any wheezing. She says she is feeling sleepy during the day, taking a nap each day and feels generally worn down. She does not have any chest pain. When she is coughing she does feel short of breath. REVIEW OF SYSTEMS 10 systems were reviewed and negative with the exception of the elements mentioned in the history of present illness. PMHx: Asthma, hypertension, chronic kidney disease, YAS Soc Hx: Housed, nonsmoker PHYSICAL General Appearance: Alert, no distress Eyes: Pupils equal and round no pallor or injection ENT, Mouth: Mucous membranes moist Respiratory: There are no retractions, lungs are clear to auscultation Cardiovascular: Regular rate and rhythm Gastrointestinal: Abdomen is soft and non-tender, no masses, bowel sounds normal Neurological: A&O, moves all extremities Skin: Warm and dry, no rashes Musculoskeletal: Neck is supple non tender Extremities: symmetrical, full range of motion , no lower extremity edema Psychiatric: Patient is oriented X 3, there is no agitation Source: Patient Exam Limitations: No limitations - Personal History Current Tetanus Diphtheria and Acellular Pertussis (TDAP): Yes Tetanus Vaccine Date: within 10 years - Medical/Surgical History Hx Asthma: Yes Hx Chronic Respiratory Disease: No Hx Diabetes: No Hx Cardiac Disease: No Hx Renal Disease: Yes Hx Cirrhosis: No Hx Alcoholism: No Hx HIV/AIDS: No Hx Splenectomy or Spleen Trauma: No Other PMH: HTN, CRF III, High Chol, CKD, IBS, Ortho Surgery, lower back pain, hysterectomy,asthma,sleep apnea - Social History Smoking Status: Former smoker Constitutional: Initial Vital Signs Temperature (C) 36.8 C 03/12/19 14:51 Heart Rate 87 03/12/19 14:51 Respiratory Rate 14 03/12/19 14:51 Blood Pressure 192/116 H 03/12/19 14:51 O2 Sat (%) 94 03/12/19 14:51 O2 Delivery Mode Room Air Allergies/Adverse Reactions: bethanechol chloride [From Urecholine] Allergy (Verified 03/12/19 14:48) Pt reports FLUSHED, PALPATATIONS, SOB codeine [Codeine] Allergy (Verified 03/12/19 14:48) Pt reports NAUSEA, VOMITING NSAIDS (Non-Steroidal Anti-Inflamma Allergy (Verified 03/12/19 14:48) Pt reports contradindication with kidney dx Home Medications: Medication Instructions Recorded Cholecalciferol (Vitamin D3) 5,000 units PO DAILY 05/13/12 [Vitamin D3] Sertraline HCl [Zoloft 100mg (*)] 100 mg PO DAILY 05/13/12 Vitamin B Complex [Vitamin B 1 tab PO DAILY 05/13/12 Complex (OTC)] Leflunomide 20 mg PO DAILY 12/19/17 Levothyroxine [Synthroid 125 mcg 125 mcg PO DAILY 12/19/17 (*)] Rosuvastatin Calcium [Crestor 10mg 10 mg PO DAILY 12/19/17 (RX)] Triamterene/Hctz 75/50 1 tab PO DAILY 12/19/17 amLODIPine BESYLATE [Norvasc 5 mg 5 mg PO DAILY #5 tab 01/21/18 (*)] oxyCODONE/APAP 5/325 [Percocet 5 - 10 mg PO Q4-6PRN PRN #10 tab 01/21/18 5/325] traMADol 1 tab PO Q6-8PRN PRN 10/31/18 Flovent 220 MCG Hfa MDI (*) 03/12/19 Proair Hfa 03/12/19 Medical Decision Making - Diagnostics Imaging Results: Imaging Impressions Chest X-Ray 03/12/19 15:07 Impression: 1. Bronchitis/airways disease. 2. No definite focal pneumonia. Imaging: I viewed and interpreted images myself Differential Diagnosis: 73-year-old female with hypertension, chronic kidney disease, asthma, YAS presents from home with 2 weeks of productive cough associated with rhinorrhea and fatigue. Here, she is quite hypertensive though remainder of vital signs are normal. Lungs sound clear. Sats are normal. Differential diagnosis includes viral URI, less likely influenza given time of year, possibly pneumonia. I have considered decompensated heart failure and fluid overload due to chronic kidney disease as well. Plan for chest x-ray. Chest x-ray performed demonstrating reactive airways disease. Suspect the patient is suffering from URI type illness, asthma may be playing a contributing role though no wheezes are heard on my exam. I have encouraged her to continue using albuterol and inhaled corticosteroid as treatment for this. I expect she will be better in a few days and have issued her return precautions. Departure - Departure Disposition: Home, Routine, Self-Care Clinical Impression: Elevated blood pressure reading Acute bronchitis Qualifiers: Bronchitis organism: unspecified organism Qualified Code(s): J20.9 - Acute bronchitis, unspecified Condition: Good Instructions: Acute Bronchitis (ED) Additional Instructions: Please continue to take your albuterol, Flovent. Because you have been sick for 2 weeks, I would hope that you will begin to feel better soon. Your chest x -ray did not show any signs of pneumonia. You should return to the emergency department if your worse in any way or develops chest pain or persistent shortness of breath. Referrals: MIKE NIETO [Primary Care Provider] - As per Instructions
[2019-03-12 16:03] VITALS: BP 157/96
== END 2019-03-12 16:03 | disposition home or self-care (01) ==
LOC: CED 14:41
DX: R03.0 Elevated blood-pressure reading, without diagnosis of hypertension (principal); J20.9 Acute bronchitis, unspecified; Z87.891 Personal history of nicotine dependence
CPT/HCPCS: 71046-PO; 99283-ER